=== PATIENT | female | born 1965 | race Caucasian/White ===

== ENCOUNTER 2020-03-11 08:48 | Outpatient (REF) | payer OTHER, SELFPAY ==
[2020-03-11 13:22] LABS: Alanine Aminotransferase 25 U/L (0-31); Albumin Level 4.4 g/dL (3.5-5.0); Alkaline Phosphatase 51 U/L (39-117); Anion Gap 13 (12-20); Aspartate Amino Transferase 16 U/L (5-31); Bilirubin Direct 0.3 mg/dL (0.0-0.5); Bilirubin Total 0.6 mg/dL (0.0-1.0); Blood Urea Nitrogen 12 mg/dL (9-16); Calcium 9.5 mg/dL (8.4-10.2); Carbon Dioxide 30 mmol/L (22-29); Chloride 101 mmol/L (96-108); Cholesterol 207 mg/dL; Estimated Glomerular Filt Rate > 60; Glucose Random 90 mg/dL (60-115); HDL Cholesterol 61 mg/dL; LDL Cholesterol Calculated 116 mg/dl; Potassium 4.7 mmol/l (3.3-5.1); Sodium 139 mmol/L (135-145); Triglycerides 150 mg/dL
[2020-03-11 13:46] LABS: Thyroid Stimulating Hormone 0.82 uIU/mL (0.32-4.0)
== END 2020-03-11 08:49 | disposition home or self-care (01) ==
LOC: HO.LAB 08:48
PROVIDERS: PCP Student in an Organized Health Care Education/Training Program; Visit Provider Student in an Organized Health Care Education/Training Program
DX: E03.9 Hypothyroidism, unspecified (principal); E78.5 Hyperlipidemia, unspecified
CPT/HCPCS: 80048; 80061; 80076; 84443

== ENCOUNTER 2020-04-16 10:02 | Outpatient (REF) | payer SELFPAY ==
--- NOTE | 2020-04-16 10:09 | US_ITS ---
EXAMINATION: US THYROID CLINICAL INFORMATION: Thyroid nodule. COMPARISON: None. TECHNIQUE: Linear transducer hall-scale and color Doppler examination with attention to the region of the thyroid. FINDINGS: SIZE: Measurements of the thyroid lobes and nodules are given in sagittal, anteroposterior and transverse dimensions respectively. Right Thyroid Lobe: 2.34 x 0.86 x 1.3 cm, volume 1.4 mL. Parenchyma: The gland echotexture is homogeneous. Thyroid vascularity is normal. Left Thyroid Lobe: 3.26 x 0.94 x 1.0 cm, volume 1.6 mL. Parenchyma: The gland echotexture is heterogeneous. Thyroid vascularity is normal. Isthmus: 0.33 cm in maximum AP dimension. RIGHT THYROID LOBE: There is 1 nodule seen. 1. Location: Lower. Size: 0.80 x 0.70 x 0.80 cm. Nodule characteristics: Heterogeneous with smooth margins and no Doppler detectable vascular flow. ISTHMUS: No nodules. LEFT THYROID LOBE: No nodules. NODES: No lymphadenopathy is seen in the tissue surrounding the thyroid gland. US/US thyroid IMPRESSION: Heterogeneous and atrophic thyroid, which could be described on a prior infectious or inflammatory process. Lower right thyroid nodule versus pseudonodule measuring 0.8 cm with heterogeneous parenchyma, smooth margins, and no Doppler detectable vascular flow. Various management parameters for solitary thyroid nodules are in the literature. According to the latest 2016 [place] [employer] guidelines, recommendations for thyroid nodules are as follows: Intermediate suspicion: Hypoechoic solid nodule with smooth margins without microcalcification, extrathyroidal extension, or taller than wide shape. Estimated risk of malignancy 10-20%. Recommendation: FNA at > 1 cm. Recommend repeat ultrasound in 12-24 months for nodules measuring less than 1 cm.
== END 2020-04-16 10:03 | disposition home or self-care (01) ==
LOC: HO.HMGCX 10:02
PROVIDERS: PCP Student in an Organized Health Care Education/Training Program; Visit Provider Internal Medicine
DX: E04.1 Nontoxic single thyroid nodule (principal)
CPT/HCPCS: 76536

== ENCOUNTER → 2022-02-21 10:42 | Outpatient (BNVA) | payer MEDICAID, SELFPAY | PROVIDERS: PCP Student in an Organized Health Care Education/Training Program; Visit Provider Surgery | DX: D17.9 Benign lipomatous neoplasm, unspecified (principal); K21.9 Gastro-esophageal reflux disease without esophagitis; F17.210 Nicotine dependence, cigarettes, uncomplicated | CPT/HCPCS: 99202 ==

== ENCOUNTER 2022-10-19 11:24 | Outpatient (REF) | payer MEDICAID, SELFPAY ==
[2022-10-19 14:58] LABS: Thyroid Stimulating Hormone 0.58 uIU/mL (0.32-4.0)
== END 2022-10-19 11:25 | disposition home or self-care (01) ==
LOC: HO.CHCLDS 11:24
PROVIDERS: Visit Provider Student in an Organized Health Care Education/Training Program
DX: E03.8 Other specified hypothyroidism (principal)
CPT/HCPCS: 36415; 84443

== ENCOUNTER 2023-05-30 10:47 | Outpatient (REF) | payer OTHER, SELFPAY ==
[2023-05-30 17:13] LABS: TSH reflex Free T4 2.78 uIU/mL (0.32-4.0)
== END 2023-05-30 10:48 | disposition home or self-care (01) ==
LOC: HO.CHCLDS 10:47
PROVIDERS: Visit Provider Nurse Practitioner
DX: E03.8 Other specified hypothyroidism (principal)
CPT/HCPCS: 36415; 84443

== ENCOUNTER 2024-01-09 10:26 | Outpatient (REF) | payer OTHER, SELFPAY ==
[2024-01-09 15:13] LABS: Alanine Aminotransferase 26 U/L (0-31); Albumin Level 4.2 g/dL (3.5-5.0); Alkaline Phosphatase 43 U/L (39-117); Anion Gap 10 (12-20); Aspartate Amino Transferase 16 U/L (5-31); Bilirubin Direct 0.2 mg/dL (0.0-0.5); Bilirubin Total 0.6 mg/dL (0.0-1.0); Blood Urea Nitrogen 13 mg/dL (9-16); Calcium 9.4 mg/dL (8.4-10.2); Carbon Dioxide 29 mmol/L (22-29); Chloride 104 mmol/L (96-108); Cholesterol 194 mg/dL (<200); Estimated Glomerular Filt Rate > 60; Glucose Random 85 mg/dL (60-115); HDL Cholesterol 59 mg/dL (>40); LDL Cholesterol Calculated 110 mg/dL (<100); Potassium 3.8 mmol/L (3.3-5.1); Sodium 139 mmol/L (135-145); Total Protein 6.8 g/dL (6.5-8.0); Triglycerides 127 mg/dL (<150)
[2024-01-09 15:27] LABS: TSH reflex Free T4 1.36 uIU/mL (0.32-4.0)
== END 2024-01-09 10:27 | disposition home or self-care (01) ==
LOC: HO.CHCLDS 10:26
PROVIDERS: Visit Provider Student in an Organized Health Care Education/Training Program
DX: E03.8 Other specified hypothyroidism (principal)
CPT/HCPCS: 36415; 80048; 80061; 80076; 84443

== ENCOUNTER 2024-06-25 14:06 | Outpatient (AMB) | payer SELFPAY ==
[2024-06-25 14:14] VITALS: BP 155/73; PULSE 90; O2SAT 97; BMI 33.1
--- NOTE | 2024-06-25 14:14 | A.OFFVIS_ITS ---
Vital Signs 3 06/25/24 14:14 Height 5 ft 1.5 in Weight 178 lb 2.136 oz BMI 33.1 BP 155/73 H Blood Pressure Location Lt brachial Position Sitting Pulse 90 Pulse Source Pulse Oximeter Pulse Oximetry (%) 97 Oxygen Delivery Method Room Air Intake Visit Reasons: lipoma Intake Note: Patient is seen in office for evaluation of a lipoma of the torso. Patient c/o: irritation when wearing a seatbelt. seen Dr Marroquin 2021 Allergies penicillin V Allergy (Unknown, Verified 06/25/24 14:17) Unknown Medication List - Last Reconciled 06/25/24 by Jairon Murphy MD cetirizine (All Day Allergy (cetirizine)) 10 mg PO DAILY PRN levothyroxine (Levoxyl) 125 mcg PO DAILY omeprazole 10 mg PO DAILY simvastatin 20 mg PO BEDTIME HPI Comments Details: 59-year-old female patient presenting with a soft tissue mass located in the left chest wall. This has been present for several years and has gradually increased in size. She reports some discomfort especially when wearing her seatbelt. She denies any previous trauma or surgery in this location. She is requesting removal of this soft tissue mass. [facility] Medical History (Updated 06/25/24 @ 14:31 by Jairon Murphy MD) Cigarette smoker GERD (gastroesophageal reflux disease) Surgical History History of tonsillectomy Hx of colonoscopy Family History Father Cancer Mother No problems noted. Social History Alcohol intake: current Patient Tobacco Use Status: Current everyday Tobacco user Review of Systems Const All systems reviewed & are unremarkable except as noted in HPI and below Physical Exam Vital Signs: Last Vital Signs Pulse 90 06/25/24 14:14 BP 155/73 H 06/25/24 14:14 Pulse Ox 97 06/25/24 14:14 Oxygen Delivery Method Room Air 06/25/24 14:14 BMI result Body Mass Index 33.1 Const General: cooperative and no acute distress Nutritional Appearance: well nourished Orientation/consciousness: patient oriented x3 Limitations: no limitations HEENT Head: Yes normocephalic and Yes atraumatic Ears: hearing grossly normal bilaterally Chest Other: 6 x 3 cm soft tissue mass in the left chest as noted below Chest/axillae images: 2 1. Soft tissue mass located over the anterior left chest wall extending up to the clavicle measuring 6 x 3 cm, mobile within the subcutaneous tissue most consistent with a lipoma. Resp Effort & Inspection: normal respiratory effort, no audible wheezes, no cough and no respiratory distress Cardio Jugular venous distension: no JVD GI Inspection: Yes normal to inspection Skin Other: Warm, dry, no rash Neuro General: patient oriented x3 Extrem General: Yes no clubbing, cyanosis or edema Assessment & Plan Assessment & Plan (1) Lipoma: Code(s): D17.9 - Benign lipomatous neoplasm, unspecified Category: Medical Qualifiers: Lipoma location: trunk Qualified Code(s): D17.1 - Benign lipomatous neoplasm of skin and subcutaneous tissue of trunk Plan 59-year-old female patient presenting with a soft tissue mass in the left chest which has gradually increased in size and is now causing some discomfort. On examination the patient has a 6 x 3 cm soft tissue mass most consistent with a lipoma in the left chest. After discussion of the procedure, risks, and alternatives, she consents to excision of the left chest wall lipoma as a short- stay surgery. Coding Level of Care Code New Pt Level 4 (84588) Diagnoses Lipoma of torso D17.1 Lipoma location: trunk
--- OUTSIDE RECORDS SUMMARY | 2024-06-25 16:54 | XMS_ITS | Encounter Summary ---
Author Organization [employer] Address [address] [facility] [address] [place] [address] Care Team Providers Care Mechanical Tech Name Role Phone Julee Bui MD Primary Care Provider [phone] Encounter Details Date Type Department Care Team ([facility] Contact Info) Description 01/16/2024 Telephone [facility] MEDICINE [address] [place], [place] [phone] Julee Bui MD [address] [place], [place] [phone] Social History Tobacco Use Types Packs/Day Years Used Date Smoking Tobacco: Every Day Cigarettes 0.5 40 Passive Smoke Exposure: Never Smokeless Tobacco: Never Alcohol Use Standard Drinks/Week Comments Yes 12 (1 standard drink = 0.6 oz pu re alcohol) Depression Answer Date Recorded Patient Health Questionnaire-9 Score 0 04/21/2022 Housing Stability Answer Date Recorded What is your housing situation today? I have bobbi vivas 01/23/[address] you li ve. Do you have problems with any of the following? None of the above 01/23/2023 Food Insecurity Answer Date Recorded Within the past 12 months, y ou worried that your food would run out before you got money to buy more: Never True 01/23/2023 Within the past 12 months,th e food you bought just didn't last and you didn't have enough money to get more: Never True Transportation Answer Date Recorded In the past 12 months, has l ack of transportation kept you from medical appts, meetings, work or from getting things needed for daily living? No 01/23/2023 Utilities Answer Date Recorded In the past 12 months, has t he electric, gas, oil or water company threatened to shut off services in your home? No 01/23/2023 Depression Answer Date Recorded Patient Health Questionnaire-2 Score 0 04/21/2022 Comments No Sex and Gender Information Value Date Recorded Sex Assigned at Female 01/24/2022 10:17 AM EDT Legal Sex Female 10:17 AM EDT Gender Identity Female 01/24/2022 10:17 AM EDT Sexual Orientation Straight 01/24/2022 10 :17 AM EDT documented as of this encounter Plan of Treatment Upcoming Encounters Date Type Department Care Team (Late st Contact Info) Description 07/04/2024 8:45 AM EDT Office Visit [facility] MED & PEDS [address] [place] [address] Julee Bui MD [address] [place] [address] documented as of this encounter Visit Diagnoses Not on filedocumented in this encounter Additional Health Concerns Assessment Noted Time PHQ-9 Depression Total Score: 0 04/21/19 23 10:15 AM EST documented as of this encounter Care Teams Mechanical Tech Relationship Specialty Start Date End Date Julee Bui MD [address] [place] [address] PCP - General Family Medicine 04/02/13 documented as of this encounter
--- OUTSIDE RECORDS SUMMARY | 2024-06-25 16:55 | XMS_ITS | Encounter Summary ---
Author Organization [employer] Address [address] [facility] 7 [place] [address] Care Team Providers Care Residential Designer Name Role Phone Julee Bui MD Primary Care Provider [phone] Reason for Visit * Reason Onset Date Comments Nurse Triage 04/04/2023 Patient 1 of 2 Encounter Details Date Type Department Care Team ([facility] st Contact Info) Description 04/04/2023 Telephone [facility] MEDICINE [address] [place] [address] Julee Bui MD [address] [place], [place] [phone] Nurse Triage (Patient 1 of 2) Social History Tobacco Use Types Packs/Day Years Used Date Smoking Tobacco: Every Day Cigarettes 0.5 40 Passive Smoke Exposure: Never Smokeless Tobacco: Never Alcohol Use Standard Drinks/Week Comments Never 0 (1 standard drink = 0.6 oz pur e alcohol) Depression Answer Date Recorded Patient Health [...] AM EDT documented as of this encounter Miscellaneous Notes * Telephone Encounter - Cora Urrutia RN - 04/04/2023 1:22 PM EST Triage call Pt reports sinus pain/pressure since 03/31/23. Pt symptoms at this time are sore throat, itchy ears, nasal drainage clear color. Pt is neg for fever but, slight cough. Pt is using flonase, claritin without effect. 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 Pt is advised to come to [facility] at [facility] today and Pt agrees with disposition and will come to [facility] today. Pt is advised to continue to drink adequate liquids and tylenol/motrin for discomfort. Insurance is verified as active . Protocol Used: Sinus Pain or Congestion (Adult) Protocol-Based Disposition: See in Office or Video Visit Today or Tomorrow Video visit not offered Positive Triage Question: * Patient wants to be seen * All higher-acuity triage questions were negative Care Advice Discussed: * Reassurance and Education - Colds and Sinus Congestion * Hydration * Reasons To Call Back - Severe pain persists over 2 hours after pain medicine - Sinus pain persists over 1 day after using nasal washes - Sinus congestion (fullness) persists over 10 days - Fever lasts over 3 days - You become worse * Telephone Encounter - Wilder Stauffer - 04/04/2023 12:11 PM EST Symptom: Sinus Symptoms Outcome: Schedule an urgent appointment (within 1 hour) or talk to a nurse or provider soon Reason: Severe headache The caller accepted this outcome documented in this encounter Plan of Treatment Upcoming Encounters Date Type Department Care Team ([facility] st Contact Info) Description 07/04/2024 8:45 AM EDT Office Visit [facility] MED & PEDS [address] [place] [address] Julee Bui MD [address] [place] [address] documented as of this encounter Visit Diagnoses Not on filedocumented in this encounter Additional Health Concerns Assessment Noted Time PHQ-9 Depression Total Score: 0 04/21/19 23 10:15 AM EST documented as of this encounter Care Teams Residential Designer Relationship Specialty Start Date End Date Julee Bui MD [address] [place] [id number] PCP - General Family Medicine 04/02/13 documented as of this encounter
--- OUTSIDE RECORDS SUMMARY | 2024-06-25 16:55 | XMS_ITS | Encounter Summary ---
Author Organization [employer] Address [address] [place] [address] [address] [place] [address] Care Team Providers Care Construction Trench Digger Name Role Phone Julee Bui MD Primary Care Provider [phone] Reason for Visit * Reason Comments Med Refill Encounter Details Date Type Department Care Team ([facility] st Contact Info) Description 06/21/2024 Refill [facility] MED & PEDS [address] [place], [place] [phone] Julee Bui MD [address] [place] [address] Gastroesophageal reflux disease, unspecified whether esophagitis present Social History Tobacco Use Types Packs/Day Years Used Date Smoking Tobacco: Every Day Cigarettes 0.5 40 Passive Smoke Exposure: Never Smokeless Tobacco: Never Alcohol Use Standard Drinks/Week Comments Yes 12 (1 standard drink = 0.6 oz pu re alcohol) Depression Answer Date Recorded Patient Health Questionnaire-9 Score 0 05/01/2024 Patient Health Questionnaire-9 Score 0 05/01/2024 Last PHQ-9: Questionnaire Data Not on file 0 05/01/2024 Housing Stability Answer Date Recorded What is your housing situation today? I have bobbimariam vivas 04/24/[address] you li ve. Do you have problems with any of the following? None of the above 04/24/2024 Food Insecurity Answer Date Recorded Within the past 12 months, y ou worried that your food would run out before you got money to buy more: Sometimes True 2024 Within the past 12 months,th e food you bought just didn't last and you didn't have enough money to get more: Sometimes True 04/24/2024 Transportation Answer Date Recorded In the past 12 months, has l ack of transportation kept you from medical appts, meetings, work or from getting things needed for daily living? No 04/24/2024 Utilities Answer Date Recorded In the past 12 months, has t he electric, gas, oil or water company threatened to shut off services in your home? No 04/24/2024 Depression Answer Date Recorded Patient Health Questionnaire-2 Score 0 05/01/2024 Internet Access Answer Date Recorded Internet Access Q1 Yes 04/24/2024 Internet Access Q2 Not on file 04/24/2024 Comments No Sex and Gender Information Value [...] Description 07/04/2024 8:45 AM EDT Office Visit [facility] MED & PEDS [address] [place] [address] Julee Bui MD [address] [place] [address] documented as of this encounter Visit Diagnoses Diagnosis Gastroesophageal reflux disease, unspecified whether esophagitis present documented in this encounter Additional Health Concerns Assessment Noted Time PHQ-9 Depression Total Score: 0 05/01/19 25 11:27 AM EST documented as of this encounter Care Teams Construction Trench Digger Relationship Specialty Start Date End Date Julee Bui MD [address] [place] [address] PCP - General Family Medicine 04/02/13 documented as of this encounter
--- OUTSIDE RECORDS SUMMARY | 2024-06-25 16:55 | XMS_ITS | Clinical Summary ---
Author Organization [employer] Address [address] [place] [address] 7 [place] [address] Care Team Providers Care Lens Examiner Name Role Phone Julee Bui MD Primary Care Provider [phone] Allergies Active Allergy Reactions Criticality Noted Date Comments Penicillin V Low 04/29/2010 Other reaction(s): unspecified Medications dextran 70-hypromellose PF (artificial tears) 0.1-0.3 % ophthalmic solution Administer 1 drop into the right eye if needed in the morning, at noon, in the evening, and at bedtime for dry eyes. 35 each 3 2024 Active fluticasone (Flonase Sensimist) 27.5 MCG/SPRAY nasal spray Administer 2 sprays into each nostril in the morning. 10 g 11 2024 Active Artificial Tears 0.2-0.2-1 % solution PLACE ONE DROP IN THE RIGHT EYE in the morning, at noon, in the evening, and at bedtime NEEDED dryness Active fluticasone (Flonase) 50 MCG/ACT nasal spray INHALE 2 SPRAYS IN EACH NOSTRIL ONCE DAILY IN THE MORNING Active estradiol (Estrace) 0.1 MG/GM vaginal creamIndications: Menopausal and perimenopausal disorder INSERT ONE GRAM VAGINALLY TWO TO THREE TIMES PER WEEK 42.5 g 1 Active ibuprofen 600 MG tablet Take 1 tab orally bid prn pain 60 tablet Active simvastatin (Zocor) 20 MG tablet TAKE ONE TABLET BY MOUTH AT BEDTIME 90 tablet 5 Active SUMAtriptan (Imitrex) 50 MG tabletIndications :Migraine variant with headache TAKE 1 TABLET BY MOUTH AT ONSET OF MIGRAINE. MAY REPEAT ONCE AFTER 2 HOURS IF NEEDED, DO NOT EXCEED TWO tabs IN 24 HOURS 9 tablet Active cetirizine (ZyrTEC) 10 MG tablet Take 1 tablet (10 mg) by mouth Once per day. 30 tablet 5 025 2024 Active prednisoLONE acetate (Pred-Forte) 1 % ophthalmic suspension PLACE ONE DROP IN EACH EYE FOUR TIMES DAILY FOR 7 DAYS THEN THREE TIMES DAILY FOR 7 DAYS THEN USE DIRECTED 10 mL Active omeprazole (PriLOSEC) [address] capsuleIndication s:Gastroesophagea l reflux disease, unspecified whether esophagitis present TAKE ONE CAPSULE EVERY MORNING 90 capsule 1 Active Banophen 25 MG capsule TAKE ONE CAPSULE EVERY NIGHT AT BEDTIME NEEDED FOR ITCHING 30 capsule 1 Active Levoxyl 125 MCG tablet Take 1 tablet (125 mcg) by mouth Once per day. 30 tablet 5 Active omeprazole (PriLOSEC) [address] capsuleIndication s:Gastroesophagea l reflux disease, unspecified whether esophagitis present Take 1 capsule (20 mg) by mouth in the morning. 90 capsule 1 025 Active omeprazole (PriLOSEC) [address] capsuleIndication s:Gastroesophagea l reflux disease, unspecified whether esophagitis present Take 1 capsule (20 mg) by mouth in the morning. 90 capsule 1 024 2024 Discontinued(R eorder (will not trigger notification to Pharmacy)) Levoxyl 125 MCG tablet Take 1 tablet (125 mcg) by mouth Once per day. 30 tablet 5 024 2024 Discontinued(R eorder (will not trigger notification to Pharmacy)) prednisoLONE acetate (Pred-Forte) 1 % ophthalmic suspension 1 drop in both eyes 4 times a day for 1 week, then 3 times a day for 1 week, then as directed. Shake before using. 10 mL 025 2024 Discontinued diphenhydrAMINE (BENADryl) 25 MG tablet Take 1 tablet (25 mg) by mouth if needed at bedtime for itching. 30 tablet 025 2024 Discontinued Active Problems Problem Noted Date Diagnosed Date Other specified hypothyroidism 04/21/2022 Migraine variant with headache 03/30/2022 Assessment & Plan (03/30/2022 1:46 PM EST): Migraine type EID, no red flags at this moment. EID not frequent, hold for ppx. Will tx & f/u PCP Gastroesophageal reflux disease 03/30/2022 Psoriasis 07/15/2015 Encounters Date Type Department Care Team Description 06/24/2024 Refill [facility] [address] [place], [place] [phone] Julee Bui MD Gastroesophageal reflux disease, unspecified whether esophagitis present 06/21/2024 Refill [facility] [address] [place] [address] Julee Bui MD Gastroesophageal reflux disease, unspecified whether esophagitis present 05/31/2024 Refill [facility] [address] [place] [address] Julee Bui MD 05/28/2024 Telephone [facility] [address] [place] [address] Julee Bui MD Nurse Triage 05/01/2024 11:15 AM EST Office Visit [facility] [address] [place] [address] Julee Bui MD Lipoma of torso (Primary Dx); Allergic conjunctivitis of both eyes and rhinitis; Elevated BP without diagnosis of hypertension 05/01/2024 Telephone [facility] [address] [place] [address] Julee Bui MD 05/01/2024 Travel 04/24/2024 Patient Outreach [facility] [address] [place] [address] Julee Bui MD Care Coordination (CHW outreach for SDOH food needs - LVM ) 04/24/2024 Patient Outreach [facility] [address] [place] [address] Julee Bui MD Pre-visit Planning (SDOH positive. Tobacco screening positive. ) from Last 3 Months Immunizations Name Administration Dates Next Due Hep B, adult 02/10/2003 Influenza Injectable Quadriv alant Preservative Free IIV4 MDCK 01/31/2023,12/28/2021,12/31/2019,2018 Influenza injectable quadriv alent IIV4 with preservative 04/08/2015 Influenza injectable quadriv alent preservative free 02/01/2021,01/08/2019 Influenza, IIV3, injectable 12/02/2013 Influenza, seasonal, injecta ble, preservative free 01/03/2024 Moderna Covid-19 Vaccine 12+ 03/04/2021, 03/04/2021,08/17/2020,2020,07/20/2020,07/20/2020 Moderna Covid-19 Vaccine 6+ Bivalent 02/22/2022 TD (adult), 2 Lf tetanus tox oid, preservative free, adsorbed 10/17/2016 Tdap 01/03/2024 Zoster, Recombinant 08/30/2021,06/29/2021 Family History Medical History Relation Name Comments Diabetes Paternal Grandmother Glaucoma Paternal Grandmother Relation Name Status Comments Father Mother Alive Paternal Grandmother Social History Tobacco Use Types Packs/Day Years Used Date Smoking Tobacco: Every Day Cigarettes 0.5 40 Passive Smoke Exposure: Never Smokeless Tobacco: Never Tobacco Cessation:Ready to Q uit: Not Asked; Counseling Given: Not Answered Alcohol Use Standard Drinks/Week Comments Yes 12 (1 standard drink = 0.6 oz pu re alcohol) Depression Answer Date Recorded Patient Health Questionnaire-9 Score 0 05/01/2024 Patient Health Questionnaire-9 Score 0 05/01/2024 Last PHQ-9: Questionnaire Data Not on file 0 05/01/2024 Housing Stability Answer Date Recorded What is your housing situation today? I have bobbi vivas 04/24/[address] you [...] Orientation Straight 01/24/2022 10 :17 AM EDT Last Filed Vital Signs Vital Sign Reading Time Taken Comments Blood Pressure 144/80 05/01/2024 10:56 AM EST Pulse 74 05/01/2024 10:56 AM EST Temperature 36.6 ??C (97.9 ??F) 05/01/2024 10:[address] Respiratory Rate 18 05/01/2024 10:56 AM EST Oxygen Saturation 98% 01/16/2024 1:43 PM EDT Inhaled Oxygen Concentration - - Weight 78 kg (172 lb) 05/01/2024 10:56 AM EST Height 155.6 cm (5' 1.25 ) 05/01/2024 10:[address] Body Mass Index 32.23 05/01/2024 10:56 AM EST Plan of Treatment Upcoming Encounters Date Type Department Care Team (Late st Contact Info) Description 07/04/2024 8:45 AM EDT Office Visit [facility] [address] [place] [address] Julee Bui MD [address] [place] [address] Health Maintenance Due Date Last Done Comments CT Colonography 1967 FIT DNA/Cologuard 1967 FIT 1967 FOBT 1967 HIV Screening 1967 Sigmoidoscopy 1967 Alcohol/Substance Use Screening 1979 Hepatitis C Screening 1985 Pneumococcal Vaccine: 50+ Years (1 of 2 - PCV) 1986 Hepatitis B Vaccines (2 of 3 - 19+ 3-dose series) 03/10/2003 02/10/2003 Lung Cancer Screening 2017 COVID-19 Vaccine ( season) 2023 02/14/2023, 02/22/2022, 03/04/2021, Additional history exists Colonoscopy 12/16/2024 12/17/2019 Colorectal Cancer Screening 12/16/2024 SDOH Screening 04/24/2025 04/24/2024 Depression Screening 05/01/2025 05/01/2024, 05/01/19 Tobacco Screening 05/01/2025 05/01/2024 Mammogram 07/09/2025 07/10/2023, 07/06/2022 Cervical Cancer Screening 05/14/2027 HPV/Cotest 05/14/2027 05/14/2022, 04/25/2017 Pap Smear 05/14/2027 05/14/2022, 04/25/2017 Lipid Panel 01/08/2029 01/09/2024 DTaP/Tdap/Td Vaccines (2 - Td or Tdap) 01/02/2034 01/03/2024, 10/17/2016 RSV Patients and Patients Aged 60 years or older (1 - 1-dose 75+ series) 2042 Zoster Vaccines Completed 08/30/2021, 06/29/2021 Influenza Vaccine Completed 01/03/2024, , 12/28/2021, Additional history exists HIB Vaccines Aged Out No longer eligi ble based on patient's age to complete this topic HPV Vaccines Aged Out No longer eligi ble based on patient's age to complete this topic Hepatitis A Vaccines Aged Out No long er eligible based on patient's age to complete this topic IPV Vaccines Aged Out No longer eligi ble based on patient's age to complete this topic Meningococcal Vaccine Aged Out No myesha louis eligible based on patient's age to complete this topic RSV under 20 months Aged Out No longe r eligible based on patient's age to complete this topic Rotavirus Vaccines Aged Out No longer eligible based on patient's age to complete this topic Procedures Procedure Name Priority Date/Time Associated Diagnosis Comments LIPID PANEL, STANDARD Routine 01/09/2024 10:29 AM EDT Other specified hypothyroidism HM MAMMOGRAPHY Routine 07/10/2023 THINPREP PAP AND HPV MRNA E6/E7 Routine 05/14/2022 9:24 AM EST HM COLONOSCOPY Routine 12/17/2019 from Last 3 Months or Most Recently Relevant to Health Maintenance Results * (ABNORMAL) Lipid Panel, Standard (01/09/2024 10:29 AM EDT) Triglycerides 127 <150 mg/dL [facility] Comment:Desirable Triglyceri de: less than 150 mg/dLBorderline High Triglyceride 150-199 mg/dLHigh Triglyceride: 200-499 mg/dLVery High Triglyceride: greater than or equal to 5OO mg/dL Cholesterol 194 <200 mg/dL [facility] Comment:Desirable Cholestero l: less than 200 mg/dLBorderline High Cholesterol: 200-239 mg/dLHigh Cholesterol: greater than 239 mg/dL LDL Cholesterol Calculated 110(H) <100 mg/dL [facility] Comment:Desirable LDL: less than 100 mg/dLNear Optimal/Above Optimal LDL: 110- 129 mg/dLBorderline High LDL: 130-159 mg/dLHigh LDL: 160-189 mg/dLVery High LDL: greater than or equal to 190 mg/dL HDL Cholesterol 59 >40 mg/dL [facility] Comment:Desirable HDL: great er than 40 mg/dL Note: This HDL assay may give artificially low results in patients with liver disease. Blood Venous blood specimen / Unknown 01/09/2024 10:29 AM EDT 01/09/2024 2:35 PM EDT us Julee Bui MD LAB BLOOD ORDERABLES Final Resul t [facility] [address] [place] [address] [phone] * Mammography (07/10/2023) Mammogram BIRADS 1 Normal, Abnormal, BIRADS 1 , BIRADS 2 Anatomical Region Laterality Modality Other Historical Provider HEALTH MAINTENANCE Final Result * Thinprep PAP and HPV nRNA E6/E7 (05/14/2022 9:24 AM EST) Clinical Information: Routine exam [facility] LMP: NONE GIVEN [facility] Prev. PAP: NONE GIVEN [facility] Prev. BX: NONE GIVEN [facility] SOURCE: None given [facility] Statement Of Adequacy: [facility] Comment: Satisfactory for evaluation. Endocervical/transformation zone component present. Interpretation/ Result: Negative for intraepithelial lesion or malignancy. [facility] Infection Shift in vaginal madhavi suggestive of bacterial vaginosis. [facility] Cyt[employer]chnolog[employer] t: [facility] Comment: DCR, CT(ASCP) CT screening location: [address] ??[phone] (Always Message) [facility] Comment: EXPLANATORY NOTE: The Pap is a screening test for cervical cancer. It is not a diagnostic test and is subject to false negative and false positive results. It is most reliable when a satisfactory sample, regularly obtained, is submitted with relevant clinical findings and history, and when the Pap result is evaluated along with historic and current clinical information. HPV nRNA E6/E7 Not Detected Not Detected [facility] Comment: Methodology: Hearing Aid Mechanic-Mediated Amplification This assay detects E6/E7 viral messenger RNA (mRNA) from 14 high-risk HPV types (16,18,31,33,35,39,45,51,52,56,58,59,66,68). Cervical sources are required for HPV testing. If a vaginal source from a patient who has had a total hysterectomy with removal of cervix was submitted, please contact the testing laboratory for alternative testing options. For additional information, please refer to [email or web address] (This link if provided for information/ educational purposes only.) NO COLLECTION DATE RECEIVED. WE HAVE USED THE DATE THE SPECIMEN WAS RECEIVED BY THIS LABORATORY THE COLLECTION DATE. IF THIS IS INCORRECT, PLEASE CONTACT CLIENT SERVICES. PHONE NUMBER: 05/11/2022 8:5 3 AM EST Narrative [facility] - 05/14/2022 9:24 AM EST FASTING: UNKNOWN Bhavana Albarran CNM LAB PATHOLOGY ORDERABLES Final Result [facility] [address] [facility] [place], [facility], [place] [address] [facility] [address] [facility] [place], ([address]) [place] [address] * Colonoscopy (12/17/2019) Colonoscopy Normal Normal Narrative Felipa Escamilla - 12/17/2019 Repeat asymptomatic screening in this patient would probably be best done at 5 years due to the lack of clarity of the prep. I would suggest fecal immunochemical testing or FIT testing at the years 1 and 3 Historical Provider HEALTH MAINTENANCE Final Result from Last 3 Months or Most Recently Relevant to Health Maintenance Insurance N PARTIAL * Guarantor: Jeaneth Montaño Account Type Relation to Patient Date of Phone Billing Address [facility] [place] [address] [place] [address] Care Teams Lens Examiner Relationship Specialty Start Date End Date Julee Bui MD [address] [place] [address] PCP - General Family Medicine 04/02/13
--- OUTSIDE RECORDS SUMMARY | 2024-06-25 16:55 | XMS_ITS | Encounter Summary ---
Author Organization [employer] Address [address] [place] [address] 7 [place] [address] Care Team Providers Care Pallet Assembler Name Role Phone Julee Bui MD Primary Care Provider [phone] Encounter Details Date Type Department Care Team (Latest Contact Info) Description 08/12/2021 Abstract [facility] CONVERSIONS Dental, Provider, DDS Social History Tobacco Use Types Packs/Day Years Used Date Smoking Tobacco: Never Assessed Comments Unknown Sex and Gender Information Value Date Recorded Sex Assigned at Female 01/24/2022 10:17 AM EDT Legal Sex Female 10:17 AM EDT Gender Identity Female 01/24/2022 10:17 AM EDT Sexual Orientation Straight 01/24/2022 10 :17 AM EDT documented as of this encounter Plan of Treatment Upcoming Encounters Date Type Department Care Team (Late st Contact Info) Description 07/04/2024 8:45 AM EDT Office Visit [facility] PEDS [address] [place] [address] Julee Bui MD [address] [place] [address] documented as of this encounter Visit Diagnoses Not on filedocumented in this encounter Care Teams Pallet Assembler Relationship Specialty Start Date End Date Jluee Bui MD [address] [place] [address] PCP - General Family Medicine 04/02/13 documented as of this encounter
--- OUTSIDE RECORDS SUMMARY | 2024-06-25 16:55 | XMS_ITS | Encounter Summary ---
Author Organization [employer] Address [address] [place] [address] 7 [place] [address] Care Team Providers Care Make Up Worker Name Role Phone Julee Bui MD Primary Care Provider [phone] Reason for Visit * Reason Onset Date Comments Med Refill 06/24/2024 Encounter Details Date Type Department Care Team ([facility] st Contact Info) Description 06/24/2024 Refill [facility] [address] [place] [address] Julee Bui MD [address] [place], [place] [phone] Gastroesophageal reflux disease, unspecified whether esophagitis present [...] encounter Miscellaneous Notes * Telephone Encounter - Melissa Faith - 06/24/2024 1:08 PM EDT TC from pt requesting medication refill. Medications needing refill : Levoxyl 125 MCG tablet omeprazole (PriLOSEC) [address] capsule To be sent to: [facility] documented in this encounter Plan of Treatment Upcoming Encounters Date Type Department Care Team ([facility] st Contact Info) Description 07/04/2024 8:45 AM EDT Office Visit [facility] [address] [place] [address] Julee Bui MD [address] [place] [address] documented as of this encounter Visit Diagnoses Diagnosis Gastroesophageal reflux disease, unspecified whether esophagitis present documented in this encounter Additional Health Concerns Assessment Noted Time PHQ-9 Depression Total Score: 0 05/01/19 25 11:27 AM EST documented as of this encounter Care Teams Make Up Worker Relationship Specialty Start Date End Date Julee Bui MD [address] [place] [address], [place] [address] PCP - General Family Medicine 04/02/13 documented as of this encounter
== END 2024-06-25 14:40 | disposition home or self-care (01) ==
LOC: HO.HGS 14:06
PROVIDERS: PCP Student in an Organized Health Care Education/Training Program; Visit Provider Surgery
DX: D17.1 Benign lipomatous neoplasm of skin and subcutaneous tissue of trunk (principal)
CPT/HCPCS: 99204

== ENCOUNTER → 2024-06-25 14:06 | Outpatient (BNVA) | payer OTHER, SELFPAY | PROVIDERS: PCP Student in an Organized Health Care Education/Training Program; Visit Provider Surgery | DX: D17.1 Benign lipomatous neoplasm of skin and subcutaneous tissue of trunk (principal) | CPT/HCPCS: 99202 ==

== ENCOUNTER 2024-09-04 05:42 | Day surgery (SDC) | payer OTHER, SELFPAY ==
--- OUTSIDE RECORDS SUMMARY | 2024-08-09 10:38 | XMS_ITS | Encounter Summary ---
Author Organization [employer] Address [address] [facility] 7t [place] [address] Care Team Providers Care Sports Equipment Racker Name Role Phone Julee Bui MD Primary Care Provider [phone] Reason for Visit * Reason Onset Date Comments Nurse Triage 04/04/2023 Patient 1 of 2 Encounter Details Date Type Department Care Team ([facility] st Contact Info) Description 04/04/[address] [facility] MEDICINE [address] [place] [address] Julee Bui MD [address] [place] [address] Nurse Triage (Patient 1 of 2) Social [...] work. Pt is advised to come to [place] at [facility] today and Pt agrees with disposition and will come to [facility] today. Pt is advised to continue to [...] documented in this encounter Plan of Treatment Not on file documented as of this encounter Visit Diagnoses Not on filedocumented in this encounter Additional Health Concerns Assessment Noted Time PHQ-9 Depression Total Score: 0 04/21/19 10:15 AM EST documented as of this encounter Care Teams Sports Equipment Racker Relationship Specialty Start Date End Date Julee Bui MD [address] [place] [address] PCP - General Family Medicine 04/02/13 documented as of this encounter
--- OUTSIDE RECORDS SUMMARY | 2024-08-09 10:38 | XMS_ITS | Encounter Summary ---
Author Organization [employer] Address [address] [facility] 7 [place] [address] Care Team Providers Care Linoleum Installer Name Role Phone Julee Bui MD Primary Care Provider [phone] Reason for Visit * Reason Onset Date Comments Med Refill 08/09/2024 Encounter Details Date Type Department Care Team ([facility] st Contact Info) Description 08/09/2024 Telephone [facility] [address] [place] [address] Julee Bui MD [address] [place] [address] Med Refill Social History Tobacco Use Types Packs/Day Years Used Date Smoking Tobacco: Every Day Cigarettes 0.5 40 Passive Smoke Exposure: Never Smokeless Tobacco: Never Alcohol Use Standard Drinks/Week Comments Yes 12 (1 standard drink = 0.6 oz pu re alcohol) Depression Answer Date Recorded Patient Health Questionnaire-9 Score 0 07/04/2024 Patient Health Questionnaire-9 Score 0 07/04/2024 Last PHQ-9: Questionnaire Data Not on file 0 07/04/2024 Housing Stability Answer Date Recorded What is [...] got money to buy more: Never True 07/04/2024 Within the past 12 months,th e food you bought just didn't last and you didn't have enough money to get more: Never True 12/2024 Transportation Answer Date Recorded In the past [...] Date Recorded Patient Health Questionnaire-2 Score 0 07/04/2024 Internet Access Answer Date Recorded Internet Access Q1 No 07/04/2024 Internet Access Q2 I do not want or need it 06/25 Comments No Sex and Gender Information Value Date Recorded Sex Assigned at Female 01/24/2022 10:17 AM EDT Legal Sex Female 10:17 AM EDT Gender Identity Female 01/24/2022 10:17 AM EDT Sexual Orientation Straight 01/24/2022 10 :17 AM EDT documented as of this encounter Miscellaneous Notes * Telephone Encounter - Jacinta Schneider LPN - 08/09/2024 8:10 AM EDT Medication was discontinued. * Telephone Encounter - Melissa Faith - 08/09/2024 8:06 AM EDT TC from pt requesting medication refill. Medications needing refill : cyclobenzaprine (Flexeril) 5 MG tablet To be sent to: [facility] [place] - [address] [place] [address] documented in this encounter Plan of Treatment Not on file documented as of this encounter Visit Diagnoses Not on filedocumented in this encounter Additional Health Concerns Assessment Noted Time PHQ-9 Depression Total Score: 0 07/05/19 25 9:00 AM EDT documented as of this encounter Care Teams Linoleum Installer Relationship Specialty Start Date End Date Julee Bui MD [address] [place] [address] PCP - General Family Medicine 04/02/13 documented as of this encounter
--- OUTSIDE RECORDS SUMMARY | 2024-08-09 10:38 | XMS_ITS | Encounter Summary ---
Author Organization [employer] Address [address] [facility] 7t [place] [address] Care Team Providers Care Woodyard Crane Operator Name Role Phone Julee Bui MD Primary Care Provider [phone] Reason for Visit * Reason Comments Med Refill Encounter Details Date Type Department Care Team ([facility] Contact Info) Description 08/07/2024 Refill [facility] MED & PEDS [address] [place], [place] [phone] Julee Bui MD [address] [place] [address] Social History Tobacco Use Types Packs/Day Years [...] your housing situation today? I have bobbi sing 04/24/[address] you li [...] as of this encounter Plan of Treatment Not on file documented as of this encounter Visit Diagnoses Not on filedocumented in this encounter Additional Health Concerns Assessment Noted Time PHQ-9 Depression Total Score: 0 07/05/19 25 9:00 AM EDT documented as of this encounter Care Teams Woodyard Crane Operator Relationship Specialty Start Date End Date Julee Bui MD [address] [place] [id number] PCP - General Family Medicine 04/02/13 documented as of this encounter
--- OUTSIDE RECORDS SUMMARY | 2024-08-09 10:38 | XMS_ITS | Encounter Summary ---
Author Organization [employer] Address [address] [facility] [address] 7[address] [place] [address] Care Team Providers Care Roaster Operator Name Role Phone Julee Bui MD Primary Care Provider [phone] Encounter Details Date Type Department Care Team ([facility] st Contact Info) Description 01/16/2024 Telephone [facility] MED[facility] [address] [place] [address] Julee Bui MD [address] [place], [place] [phone] Social History Tobacco Use Types Packs/Day Years [...] documented as of this encounter Care Teams Roaster Operator Relationship Specialty Start Date End Date Julee Bui MD [address] [place] [id number] PCP - General Family Medicine 04/02/13 documented as of this encounter
--- OUTSIDE RECORDS SUMMARY | 2024-08-09 10:38 | XMS_ITS | Encounter Summary ---
Author Organization [employer] Address [address] [facility] 7t [place] [address] Care Team Providers Care Teller Manager Name Role Phone Julee Bui MD Primary Care Provider [phone] Encounter Details Date Type Department Care Team ([facility] Contact Info) Description 08/07/2024 8:45 AM EDT Telemedicine [facility] MED & PEDS [address] [place], [place] [phone] Julee Bui MD [address] [place] [address] Jaw pain (Primary Dx) Social History Tobacco Use Types Packs/Day Years [...] AM EDT documented as of this encounter Progress Notes * Julee Bui MD - 08/07/2024 8:45 AM EDT Subjective Patient ID: Jeaneth Montaño is a 59 y.o. female who presents for No chief complaint on file.. F/u Jaw pain She states flexeril helped a lot Review of Systems Constitutional: Negative. Respiratory: Negative. Negative for shortness of breath. Cardiovascular: Negative for chest pain and palpitations. Gastrointestinal: Negative. Genitourinary: Negative. Musculoskeletal: Negative for neck pain. Neurological: Negative for headaches. Objective Physical Exam Psychiatric: Mood and Affect: Mood normal. Behavior: Behavior normal. Thought Content: Thought content normal. Judgment: Judgment normal. Assessment/Plan Diagnoses and all orders for this visit: Jaw pain Comments: Resolved with Flexeril Advised stretching exercises F/u as scheduled documented in this encounter Plan of Treatment Not on file documented as of this encounter Visit Diagnoses Diagnosis Jaw pain- Primary documented in this encounter Additional Health Concerns Assessment Noted Time PHQ-9 Depression Total Score: 0 07/05/19 25 9:00 AM EDT documented as of this encounter Care Teams Teller Manager Relationship Specialty Start Date End Date Julee Bui MD [address] [place] [address], [place] [address] PCP - General Family Medicine 04/02/13 documented as of this encounter
--- OUTSIDE RECORDS SUMMARY | 2024-08-09 10:38 | XMS_ITS | Encounter Summary ---
Author Organization [employer] Address [address] [facility] [address] 7[address] [place] [address] Care Team Providers Care Statistics Teacher Name Role Phone Julee Bui MD Primary Care Provider Encounter Details Date Type Department Care Team (Latest Contact Info) Description 08/07/2024 Travel Social History Tobacco Use Types Packs/Day Years [...] documented as of this encounter Care Teams Statistics Teacher Relationship Specialty Start Date End Date Julee Bui MD [address] [place] [phone] PCP - General Family Medicine 04/02/13 documented as of this encounter
--- OUTSIDE RECORDS SUMMARY | 2024-08-09 10:38 | XMS_ITS | Clinical Summary ---
Author Organization [employer] Address [address] [place] [address] 7 [place] [address] Care Team Providers Care Workers Compensation Legal Secretary Name Role Phone Julee Bui MD Primary Care Provider [phone] Allergies Active Allergy Reactions Criticality Noted Date Comments Penicillin V Low 04/29/2010 Other reaction(s): unspecified Medications dextran 70-hypromellose PF (artificial tears) 0.1-0.3 % ophthalmic solution Administer 1 drop into the right eye if needed in the morning, at noon, in the evening, and at bedtime for dry eyes. 35 each 3 01/12/20 24 2024 Active fluticasone (Flonase Sensimist) 27.5 MCG/SPRAY nasal spray Administer 2 sprays into each nostril in the morning. 10 g 11 01/12/20 24 2024 Active Artificial Tears 0.2-0.2-1 % solution PLACE ONE DROP IN THE RIGHT EYE in the morning, at noon, in the evening, and at bedtime NEEDED dryness 01/12/20 Active fluticasone (Flonase) 50 MCG/ACT nasal spray INHALE 2 SPRAYS IN EACH NOSTRIL ONCE DAILY IN THE MORNING 01/12/20 Active estradiol (Estrace) 0.1 MG/GM vaginal creamIndications: Menopausal and perimenopausal disorder INSERT ONE GRAM VAGINALLY TWO TO THREE TIMES PER WEEK 42.5 g 1 01/17/20 24 Active ibuprofen 600 MG tablet Take 1 tab orally bid prn pain 60 tablet 01/16/20 Active simvastatin (Zocor) 20 MG tablet TAKE ONE TABLET BY MOUTH AT BEDTIME 90 tablet 5 02/28/20 24 Active SUMAtriptan (Imitrex) 50 MG tabletIndications :Migraine variant with headache TAKE 1 TABLET BY MOUTH AT ONSET OF MIGRAINE. MAY REPEAT ONCE AFTER 2 HOURS IF NEEDED, DO NOT EXCEED TWO tabs IN 24 HOURS 9 tablet 02/29/20 24 Active cetirizine (ZyrTEC) 10 MG tablet Take 1 tablet (10 mg) by mouth Once per day. 30 tablet 5 05/01/19 25 2024 Active prednisoLONE acetate (Pred-Forte) 1 % ophthalmic suspension PLACE ONE DROP IN EACH EYE FOUR TIMES DAILY FOR 7 DAYS THEN THREE TIMES DAILY FOR 7 DAYS THEN USE DIRECTED 10 mL 06/04/19 25 Active omeprazole (PriLOSEC) [address] capsuleIndication s:Gastroesophagea l reflux disease, unspecified whether esophagitis present TAKE ONE CAPSULE EVERY MORNING 90 capsule 1 06/26/19 25 Active Banophen 25 MG capsule TAKE ONE CAPSULE EVERY NIGHT AT BEDTIME NEEDED FOR ITCHING 30 capsule 1 06/26/19 25 Active Levoxyl 125 MCG tablet Take 1 tablet (125 mcg) by mouth Once per day. 30 tablet 5 06/26/19 25 Active omeprazole (PriLOSEC) [address] capsuleIndication s:Gastroesophagea l reflux disease, unspecified whether esophagitis present Take 1 capsule (20 mg) by mouth in the morning. 90 capsule 1 06/26/19 25 Active cyclobenzaprine (Flexeril) 5 MG tablet Take 1 tablet (5 mg) by mouth at bedtime. 30 tablet 07/05/19 25 2024 Discontinued Active Problems Problem Noted Date Diagnosed Date Other specified hypothyroidism 04/21/2022 Migraine variant with headache 03/30/2022 Assessment & Plan (03/30/2022 1:46 PM EST): Migraine type EID, no red flags at this moment. EID not frequent, hold for ppx. Will tx & f/u PCP Gastroesophageal reflux disease 03/30/2022 Psoriasis 07/15/2015 Encounters Date Type Department Care Team Description 08/09/[address] [facility] MEDICINE [address] [place] [phone] Julee Bui MD Med Refill 08/07/2024 8:45 AM EDT Telemedicine [facility] CHC MED & PEDS [address] [place] [address] Julee Bui MD Jaw pain (Primary Dx) 08/07/[address] [facility] CH[facility] MED & PEDS 505 [facility] [place] [address] Julee Bui MD 08/07/2024 Travel 08/06/[address] [facility] CH[facility] MED & PEDS [address] [place] [address] Julee Bui MD 07/04/2024 8:45 AM EDT Office Visit [facility] MED & PEDS [address] [place] [address] Julee Bui MD Jaw pain (Primary Dx); Other specified hypothyroidism 07/04/2024 Travel 07/03/[address] [facility] MED & PEDS [address] [place] [address] Julee Bui MD Appointment 06/24/[address] [facility] MEDICINE [address] [place] [address] Julee Bui MD Gastroesophageal reflux disease, unspecified whether esophagitis present 06/21/[address] [facility] MED & PEDS [address] [place] [address] Julee Bui MD Gastroesophageal reflux disease, unspecified whether esophagitis present 05/31/[address] [facility] CH[facility] MED & PEDS [address] [place] [address] Julee Bui MD 05/28/2024 Telephone [facility] MED & PEDS [address] [place] [address] Julee Bui MD Nurse Triage from Last 3 Months Immunizations Immunization Administration Dates Next Due Hep B, adult [...] Sign Reading Time Taken Comments Blood Pressure 128/80 07/04/2024 8:58 AM EDT Pulse 80 07/04/2024 8:58 AM EDT Temperature 36.7 ??C (98 ??F) 07/04/2024 8:58 AM EDT Respiratory Rate 18 07/04/2024 8:58 AM EDT Oxygen Saturation 98% 01/16/2024 1:43 PM EDT Inhaled Oxygen Concentration - - Weight 78.9 kg (174 lb) 07/04/2024 8:58 AM EDT Height 155.6 cm (5' 1.25 ) 07/04/2024 8:58 AM ED T Body Mass Index 32.61 07/04/2024 8:58 AM EDT Plan of Treatment Health Maintenance Due Date Last Done Comments CT Colonography 1967 FIT DNA/Cologuard 1967 FIT 1967 FOBT 1967 HIV Screening 1967 Sigmoidoscopy 1967 Hepatitis C Screening 1985 Pneumococcal Vaccine: 50+ Years (1 of 2 - PCV) 1986 Hepatitis B Vaccines (2 of 3 - 19+ 3-dose series) 03/10/2003 02/10/2003 Lung Cancer Screening 2017 COVID-19 Vaccine ( season) 2023 02/14/2023, 02/22/2022, 03/04/2021, Additional history exists Colonoscopy 12/16/2024 12/17/2019 Colorectal Cancer Screening 12/16/2024 Alcohol/Substance Use Screening 07/04/2025 07/04/2024 Depression Screening 07/04/2025 07/04/2024, 07/05/19 SDOH Screening 07/04/2025 07/04/2024 Tobacco Screening 07/04/2025 07/04/2024 Mammogram 07/09/2025 07/10/2023, 07/06/2022 Cervical Cancer Screening [...] patient's age to complete this topic Meningococcal B Vaccine Aged Out No l onger eligible based on patient's age to complete [...] 01/09/2024 10:29 AM EDT Other specified hypothyroidism MAMMOGRAPHY Routine 07/10/2023 THINPREP PAP AND HPV MRNA E6/E7 Routine 05/14/2022 9:24 AM EST COLONOSCOPY Routine 12/17/2019 from Last 3 Months or Most Recently Relevant to Health Maintenance Results * (ABNORMAL) Lipid Panel, Standard (01/09/2024 10:29 AM EDT) Triglycerides 127 <150 mg/dL [facility] Comment:Desirable Triglyceri de: less than 150 mg/dLBorderline High Triglyceride 150-199 mg/dLHigh Triglyceride: 200-499 mg/dLVery High Triglyceride: greater than or equal to 5OO mg/dL Cholesterol 194 <200 mg/dL [facility] Comment:Desirable Cholestero l: less than 200 mg/dLBorderline High Cholesterol: 200-239 mg/dLHigh Cholesterol: greater than 239 mg/dL LDL Cholesterol Calculated 110(H) <100 mg/dL [facility] Comment:Desirable LDL: less than 100 mg/dLNear Optimal/Above Optimal LDL: 110- 129 mg/dLBorderline High LDL: 130-159 mg/dLHigh LDL: 160-189 mg/dLVery High LDL: greater than or equal to 190 mg/dL HDL Cholesterol 59 >40 mg/dL [facility] Comment:Desirable HDL: great er than 40 mg/dL Note: This HDL assay may give artificially low results in patients with liver disease. Blood Venous blood specimen / Unknown 01/09/2024 10:29 AM EDT 01/09/2024 2:35 PM EDT Julee Bui MD LAB BLOOD ORDERABLES Final Resul t [facility] [address] [place] [phone] * Mammography (07/10/2023) Mammogram BIRADS 1 Normal, Abnormal, BIRADS 1 , BIRADS 2 Anatomical Region Laterality Modality Other Kole Provider HEALTH MAINTENANCE Final Result * Thinprep PAP and HPV nRNA E6/E7 (05/14/2022 9:24 AM EST) Clinical Information: Routine exam [facility] LMP: NONE GIVEN [facility] [place] [facility] Prev. PAP: NONE GIVEN [facility] [place] [facility] Prev. BX: NONE GIVEN [facility] SOURCE: None given [facility] [place] [facility] Statement Of Adequacy: [facility] [place] [facility] Comment: Satisfactory for evaluation. Endocervical/transformation zone component present. Interpretation/ Result: Negative for intraepithelial lesion or malignancy. [facility] [place] [facility] Infection Shift in vaginal madhavi suggestive of bacterial vaginosis. [facility] [place] [facility] Cytotechnologis t: [facility] [place] [facility] Comment: DCR, CT(ASCP) CT screening location: [address] ??[phone] (Always Message) [facility] [place] [facility] Comment: EXPLANATORY NOTE: The Pap is a [...] HPV nRNA E6/E7 Not Detected Not Detected [facility] Comment: Methodology: Paving Rammer-Mediated Amplification This assay detects E6/E7 viral messenger RNA (mRNA) from 14 high-risk HPV types (16,18,31,33,35,39,45,51,52,56,58,59,66,68). Cervical sources are required for HPV testing. If a vaginal source from a patient who has had a total hysterectomy with removal of cervix was submitted, please contact the testing laboratory for alternative testing options. For additional information, please refer to http://education.[employer]Mapori/faq/HJQ643k6 (This link if provided for information/ educational purposes only.) NO COLLECTION DATE RECEIVED. WE HAVE USED THE DATE THE SPECIMEN WAS RECEIVED BY THIS LABORATORY THE COLLECTION DATE. IF THIS IS INCORRECT, PLEASE CONTACT CLIENT SERVICES. PHONE NUMBER: 05/11/2022 8:5 3 AM EST Narrative [facility] - 05/14/2022 9:24 AM EST FASTING: UNKNOWN us Bhavana Albarran CNM LAB PATHOLOGY ORDERABLES Final Result [address], [place] [address] [facility] [address], ([address]) [place] [address] * Colonoscopy (12/17/2019) Colonoscopy Normal Normal Narrative Felipa Escamilla - 12/17/2019 Repeat asymptomatic screening in this patient would probably be best done at 5 years due to the lack of clarity of the prep. I would suggest fecal immunochemical testing or FIT testing at the years 1 and 3 us Historical Provider HEALTH MAINTENANCE Final Result from Last 3 Months or Most Recently Relevant to Health Maintenance Insurance * Guarantor: Jeaneth Montaño Account Type Relation to Patient Date of Phone Billing Address Personal/Family Self Felisa6 [address]20 * Guarantor: Jeaneth Montaño Account Type Relation to Patient Date of Phone Billing Address Personal/Family Self Felisa6 [address]ley Care Teams Workers Compensation Legal Secretary Relationship Specialty Start Date End Date Julee Bui MD [address] [place] [phone] PCP - General Family Medicine 04/02/13
--- OUTSIDE RECORDS SUMMARY | 2024-08-09 10:38 | XMS_ITS | Encounter Summary ---
Author Organization [employer] Address [address] [place] [address] 7 [place] [address] Care Team Providers Care Crown Presser Name Role Phone Julee Bui MD Primary Care Provider [phone] Encounter Details Date Type Department Care Team (Latest Contact Info) Description 08/12/2021 Abstract [facility] CONVERSIONS Dental, Provider, DDS Social History Tobacco [...] on filedocumented in this encounter Care Teams Crown Presser Relationship Specialty Start Date End Date Julee Bui MD [address] [place] [phone] PCP - General Family Medicine 04/02/13 documented as of this encounter
--- OUTSIDE RECORDS SUMMARY | 2024-08-09 10:38 | XMS_ITS | Encounter Summary ---
Author Organization [employer] Address [address] [facility] 7t [place] [address] Care Team Providers Care Miller Head Name Role Phone Julee Bui MD Primary Care Provider [phone] Reason for Visit * Reason Comments Med Refill Encounter Details Date Type Department Care Team ([facility] Contact Info) Description 08/06/[address] [facility] CHC MED & PEDS [address] [place], [place] [phone] Julee Bui MD [address] [place] [address] Social History Tobacco Use Types Packs/Day Years [...] documented as of this encounter Care Teams Miller Head Relationship Specialty Start Date End Date Juele Bui MD [address] [place] [address] PCP - General Family Medicine 04/02/13 documented as of this encounter
--- NOTE | 2024-09-02 15:24 | HO.ANESPROP2 ---
Documented by User: Padmini Schmidt NP 09/02/24 15:24 HPI - Anesthesia Eval Consult details Narrative: 59yo F for Left Excision Lipoma Chest Wall PMFSH Active Problems Active Problems: All Active Problems GERD (gastroesophageal reflux disease) (Acute) Cigarette smoker (Acute) Lipoma (Acute) Colon cancer screening (Acute) Past Medical History Medical History Cigarette smoker GERD (gastroesophageal reflux disease) Family History Family History Father Cancer Mother No problems noted. Surgical History Surgical History History of tonsillectomy Hx of colonoscopy Social History Social History Alcohol intake: current Patient Tobacco Use Status: Current everyday Tobacco user Tobacco use type: Cigarette Cigarettes Per Day: 4 Use of substances other than those prescribed or required for medical reasons: No Are you DNR?: No Advance Directives: No Advance Directives Information Provided: Yes Patient : No : No Poor oral hygiene: No Meds Allergies Allergy/AdvReac Type Severity Reaction Status Date / Time penicillin V Allergy Unknown Unknown Verified 06/25/24 14:17 Home Medications ?Medication ?Instructions ?Recorded ?Confirmed ?Last Taken ?Type levothyroxine 125 mcg tablet 125 mcg PO DAILY 02/21/22 09/04/24 09/04/24 History (Levoxyl) omeprazole 10 mg capsule,delayed 10 mg PO DAILY 02/21/22 09/04/24 09/04/24 History release simvastatin 20 mg tablet 20 mg PO BEDTIME 02/21/22 09/04/24 Unknown History cetirizine 10 mg capsule (All Day 10 mg PO DAILY PRN Allergy Symptoms 06/25/24 09/04/24 09/04/24 History Allergy (cetirizine)) cyclobenzaprine 5 mg tablet 5 mg PO BEDTIME 09/04/24 09/04/24 Unknown History Assessment and Plan Assessment Anesthesia Assessment: Chart Reviewed Documented by User: Alexia Sotelo MD 09/04/24 08:10 PMFSH Past Medical History Medical History Cigarette smoker GERD (gastroesophageal reflux disease) Family History Family History Father Cancer Mother No problems noted. Family history of problems with anesthesia: No Surgical History Surgical History History of tonsillectomy Hx of colonoscopy History of Problems with Anesthesia: No Social History Social History Alcohol intake: current Patient Tobacco Use Status: Current everyday Tobacco user Tobacco use type: Cigarette Cigarettes Per Day: 4 Use of substances other than those prescribed or required for medical reasons: No Are you DNR?: No Advance Directives: No Advance Directives Information Provided: Yes Patient : No : No Poor oral hygiene: No Meds Allergies Allergy/AdvReac Type Severity Reaction Status Date / Time penicillin V Allergy Unknown Unknown Verified 06/25/24 14:17 Home Medications ?Medication ?Instructions ?Recorded ?Confirmed ?Last Taken ?Type levothyroxine 125 mcg tablet 125 mcg PO DAILY 02/21/22 09/04/24 09/04/24 History (Levoxyl) omeprazole 10 mg capsule,delayed 10 mg PO DAILY 02/21/22 09/04/24 09/04/24 History release simvastatin 20 mg tablet 20 mg PO BEDTIME 02/21/22 09/04/24 Unknown History cetirizine 10 mg capsule (All Day 10 mg PO DAILY PRN Allergy Symptoms 06/25/24 09/04/24 09/04/24 History Allergy (cetirizine)) cyclobenzaprine 5 mg tablet 5 mg PO BEDTIME 09/04/24 09/04/24 Unknown History Exam Airway Mallampati Class: II TM Dist: >3cm Neck ROM: Full Heart: rrr Assessment and Plan Assessment Anesthesia Assessment: Anesthesia Plan Discussed Final Anesthetic Review Family History of Problems with Anesthesia: No History of Problems with Anesthesia: No NPO: Yes ASA Class: II Final Preanesthetic Review: No Changes in Pt Med Stat, Meds/Allgs Chart Reviewed, Consent Obtained/Reviewed and Anes Risks/Benef Reviewed Patient Risk: Low Procedure Risk: Low Anesthetic Plan Anesthetic Plan: GA Disposition: Standard PACU
[2024-09-02 16:54] VITALS: BMI 33.1
[2024-09-04 06:11] VITALS: BMI 32.4
[2024-09-04 06:33] VITALS: BP 126/82; PULSE 72; RESP 16; TEMP 35.8; O2SAT 97
[2024-09-04] MEDS: vancomycin HCL 1,000 MG in 0.9 % Sodium Chloride 250 ML 270 MG IV (06:52)
[2024-09-04] MEDS: Lactated Ringers 1,000 ML 100 ML IVCONT (06:53)
--- NOTE | 2024-09-04 07:38 | MHC.SHP ---
Pre-Procedural Eval Section A - 24 Hr Update-Section A only Date of Service: 09/04/24 The patient is an INPATIENT: No Changes since office visit: Yes Patient answered all questions; No Cold of Flu in the past 2 weeks, No New Medical Problems and No Changes in Medication The patient has been examined within 24 hours of the surgical procedure. The History & Physical has been completed within 30 days and I have reviewed it.: No Section B - Complete if H&P > 30 days Chief Complaint: Benign lipomatous neoplasm of skin and subcutaneou Details of Present Illness: No change in symptoms reported Relevant Family History (Specify if Yes): No Relevant Social History: None Present Medications: see Short Stay Collaborative assessment Medical History: No relevant PMH History of Previous Operations: No relevant previous surgery Allergies: Allergies Allergy/AdvReac Type Severity Reaction Status Date / Time penicillin V Allergy Unknown Unknown Verified 06/25/24 14:17 Review of Systems Sugical H&P ROS: Negative: Constitution, Cardiovascular, Respiratory, Neurological, Psychiatric, Hem-Onc, Allergic/Immunologic, Gastrointestinal, Genitourinary, Musculoskeletal, Integumentary, Endocrine and Eyes/Ears/Nose/Throat Exam Surgical H&P Exam: Normal: HEENT, Normal: Heart, Normal: Lungs, Normal: Extremities, Normal: Abdomen, Normal: Skin and Normal: Neurological Plan Diagnosis/Plan: Unchanged I have reviewed the history and physical and performed a pertinent physical examination on my patient. No changes have occurred unless specified. Time Spent With Patient Time: Total time managing care of this patient today ____ minutes.
--- NOTE | 2024-09-04 08:29 | P.OP_ITS ---
Operative Note Operative Note Date of Service: 09/04/24 Narrative: Preoperative diagnosis: Lipoma left chest wall Postoperative diagnosis: Same Procedure: Excision of lipoma left chest wall Surgeon: Jairon Murphy MD Phlebotomist Associate: Alex Reddy PA-C, GARRY Baer Anesthesia: General LMA Indications for procedure: 59-year-old female patient presenting with a soft tissue mass located over the left chest wall. On examination she has a 3 by 7 cm soft tissue mass which is mobile within the subcutaneous tissue. Operative findings: Soft tissue mass consistent with a lipoma measuring 7 x 3 cm. Specimen: Lipoma left chest wall Estimated blood loss: Less than 2 mL Complications: None Procedure details: Patient was brought to the OR and placed in a supine position. After administering general anesthesia the patient's left chest was prepped with ChloraPrep and draped in a sterile fashion. A surgical time-out was called the consent confirmed. Patient received preoperative antibiotics and Venodyne boots were in place. Local anesthesia consisting of 0.5% Sensorcaine was infiltrated over the lump. A incision was then made over the lump and carried out through subcutaneous tissue. Combination of blunt and sharp dissection was then used to dissect the lipoma from the surrounding subcutaneous tissue. Hemostasis was assured using electrocautery. The lesion was completely excised and sent to pathology for further examination. Wounds were then i rrigated with saline solution and suctioned dry. Dermis was then reapproximated using interrupted 3-0 Polysorb sutures. Skin was closed using a running subcuticular 4-0 Polysorb suture. Steri-Strips, 4 x 4 gauze and Tegaderm were then applied. The patient tolerated the procedure well. Sponge, instrument, and needle counts reported as correct. The patient was transferred to PACU in stable condition.
[2024-09-04 08:33] VITALS: BP 114/62; PULSE 77; RESP 18; TEMP 36.1
[2024-09-04 08:35] VITALS: BP 112/66; PULSE 71; RESP 18; O2SAT 97
[2024-09-04 08:40] VITALS: BP 122/70; PULSE 70; RESP 18; O2SAT 98
[2024-09-04 08:45] VITALS: BP 118/62; PULSE 70; RESP 18; O2SAT 98
[2024-09-04 09:00] VITALS: BP 133/65; PULSE 55; RESP 20; TEMP 36.1; O2SAT 98
== END 2024-09-04 09:39 | disposition home or self-care (01) ==
PROVIDERS: PCP Student in an Organized Health Care Education/Training Program; Visit Provider Surgery
PROC: (CPT 21552; principal; 2024-09-04 07:30)
DX: D17.1 Benign lipomatous neoplasm of skin and subcutaneous tissue of trunk (principal); K21.9 Gastro-esophageal reflux disease without esophagitis; Z79.899 Other long term (current) drug therapy; Z88.0 Allergy status to penicillin; F17.210 Nicotine dependence, cigarettes, uncomplicated
CPT/HCPCS: 21552; 88304; J1100; J2003; J2250; J2405; J2704; J3010; J3370

== ENCOUNTER → 2024-09-04 05:42 | Outpatient (BNV) | payer OTHER, SELFPAY | PROVIDERS: PCP Student in an Organized Health Care Education/Training Program; Visit Provider Surgery | DX: D17.1 Benign lipomatous neoplasm of skin and subcutaneous tissue of trunk (principal) | CPT/HCPCS: 21552 ==

== ENCOUNTER 2024-09-17 10:08 | Outpatient (AMB) | payer OTHER, SELFPAY ==
--- NOTE | 2024-09-17 10:12 | A.OFFVIS_ITS ---
Vital Signs 09/17/24 10:18 Weight 176 lb BP 152/82 H Blood Pressure Location Rt brachial Position Sitting Pulse 79 Intake Visit Reasons: S/P exc. lipoma Lt chest wall Intake Note: Patient here s/p Lt chest excision for lipoma on 09-04-2024. Patient c/o: reports incision healing well. Denies pain, oozing, itch. Insurance Customer Service Specialist Required: No Accompanied by: Self / Same As Patient Allergies penicillin V Allergy (Unknown, Verified 09/17/24 10:18) Unknown HPI HPI S/P exc. lipoma Lt chest wall: Details: Patient returning to the office for follow-up following a left chest wall lipoma excision. Patient is doing very well, has a bit of a sore throat since the procedure, but thinks this is likely from the intubation. She has been using t hroat soothing lozenges as needed and states that this is improving. She has no concerns with the incision sites states it is healing well, denies pain, redness, discharge, fever, chills PFSH Medical History Cigarette smoker GERD (gastroesophageal reflux disease) Surgical History History of tonsillectomy Hx of colonoscopy Family History Father Cancer Mother No problems noted. Social History Alcohol intake: current Patient Tobacco Use Status: Current everyday Tobacco user Tobacco use type: Cigarette Cigarettes Per Day: 4 Review of Systems Const All systems reviewed & are unremarkable except as noted in HPI and below Physical Exam Vital Signs: Last Vital Signs Pulse 79 09/17/24 10:18 BP 152/82 H 09/17/24 10:18 Const General: comfortable and no acute distress Orientation/consciousness: patient oriented x3 Chest Other: Left chest incision site healing well, clean dry and intact, no surrounding erythema, no palpable fluid collection, nontender, nonedematous. Resp Effort & Inspection: normal respiratory effort and able to speak in complete sentences Neuro General: patient oriented x3 Assessment & Plan Assessment & Plan (1) Lipoma: Code(s): D17.9 - Benign lipomatous neoplasm, unspecified Category: Medical Qualifiers: Lipoma location: trunk Qualified Code(s): D17.1 - Benign lipomatous neoplasm of skin and subcutaneous tissue of trunk (2) S/P excision of lipoma: Code(s): Z98.890 - Other specified postprocedural states; Z86.018 - Personal history of other benign neoplasm Category: Medical Plan 59-year-old s/p lipoma excision of the left chest on 09/04/24 presenting for 2 week postop. Patient is doing very well. Denies pain, discharge, redness at the incision site. On exam the incision site is healing well, incision is intact, nontender there was no surrounding erythema or palpable fluid collectio n. Patient can follow up as needed for any future concerns. Surgical pathology as follows mature lobular adipose tissue consistent with lipoma Coding Level of Care Code Est Pt Level 2 (04157) Diagnoses Lipoma of torso D17.1 Lipoma location: trunk S/P excision of lipoma Z98.890; Z86.018
[2024-09-17 10:18] VITALS: BP 152/82; PULSE 79
--- OUTSIDE RECORDS SUMMARY | 2024-09-17 11:13 | XMS_ITS | Encounter Summary ---
Author Organization [employer] Address [address] [place] [address] Care Team Providers Care Craft Coordinator Name Role Phone Julee Bui MD Primary Care Provider [phone] Encounter Details Date Type Department Care Team ([facility] st Contact Info) Description 01/16/2024 Telephone [facility] MEDICINE [address] [place] [address] Julee Bui MD [address] [place], [place] [id number] Social History Tobacco Use Types Packs/Day Years [...] documented as of this encounter Care Teams Craft Coordinator Relationship Specialty Start Date End Date Julee Bui MD [address] [place] [address] PCP - General Family Medicine 04/02/13 documented as of this encounter
== END 2024-09-17 10:24 | disposition home or self-care (01) ==
PROVIDERS: PCP Student in an Organized Health Care Education/Training Program
DX: D17.1 Benign lipomatous neoplasm of skin and subcutaneous tissue of trunk (principal); Z98.890 Other specified postprocedural states; Z86.018 Personal history of other benign neoplasm
CPT/HCPCS: 99024

== ENCOUNTER → 2024-09-17 10:08 | Outpatient (BNVA) | payer OTHER, SELFPAY | PROVIDERS: PCP Student in an Organized Health Care Education/Training Program | DX: D17.1 Benign lipomatous neoplasm of skin and subcutaneous tissue of trunk (principal); Z98.890 Other specified postprocedural states; Z86.018 Personal history of other benign neoplasm | CPT/HCPCS: 99212 ==